=== PATIENT | male | born 1995 | race Caucasian/White ===

== ENCOUNTER 2021-12-17 15:28 | Emergency (ER) | payer OTHER ==
[2021-12-17 17:21] LABS: HIV (1/2) Antibody/Antigen Non-Reactive (NonReactive); HIV 1/2 INDEX 0.11 S/CO (<1.00); Hep C IgG Ab Non-Reactive (NonReactive); Hep C Index 0.17 S/CO (0-0.79)
[2021-12-17 17:25] LABS: HBSAB Concentration 423.12 mIU/mL; Hep B Surf AB Reactive (NonReactive)
== END 2021-12-17 16:41 | disposition home or self-care (01) ==
LOC: ERS 15:28
DX: Z77.21 Contact with and (suspected) exposure to potentially hazardous body fluids (principal)
CPT/HCPCS: 36415; 99283